=== PATIENT | female | born 1980 | race Caucasian/White ===

== ENCOUNTER 2017-01-30 05:40 | Day surgery (SDC) | payer OTHER ==
[~2017-01-30] VITALS: Ht 172.7 cm; Wt 155.5 kg
[~2017-01-30 05:40] MED LIST: ADDERALL30 MG PO; ALBUTEROL17 GM IH; AMBIEN10 MG PO; AMPHETAMINE SAL20 MG PO; CATAPRES0.1 MG PO; CELEXA10 MG PO; CELEXA20 MG PO; CLONIDINE HCL0.1 MG PO; ENDOCET 5-3251 EACH PO; EPIPEN ADU0.3 MG/0.3 IM; FLAGYL500 MG PO; FLEXERIL10 MG PO; FLONASE16 G1 BOTH NARES; INDOCIN50 MG PO; KLONOPIN0.5 M1 PO; MACROBID100 MG PO; NOHOMEMEDS; PERCOCET 5/31 TABLET PO; PROAIR HFA8.5 GM IH; PROMETHAZINE HC25 M1 PO; PROTONIX40 MG PO; RANITIDINE HCL150 MG PO; TOPAMAX50 MG PO; TRAMADOL HCL50 MG PO; TYLENOL REGULA325 MG PO; VENTOLIN HFA18 GM IH; VITAMIN D5000 UNI1 PO; WELLBUTRIN XL150 MG PO; WELLBUTRIN XL300 MG PO; XANAX1 MG PO; ZOFRAN ODT4 MG PO
[2017-01-30 06:18] VITALS: BP 128/77
[2017-01-30 12:35] VITALS: BP 132/97
[2017-01-30 16:24] VITALS: BP 114/59
[2017-01-30 19:14] VITALS: BP 126/80
[2017-01-30 23:19] VITALS: BP 104/65
[2017-01-31 03:36] VITALS: BP 135/71
[2017-01-31 06:39] LABS: EOSINOPHIL (%) 0.1 % (0-5); HEMATOCRIT 34.8 % (36.0-46.0); IMMATURE GRANULOCYTE (%) 0.4 % (0.0-0.7); INSTRUMENT ABS NEUTROPHIL CT 8.6 K/uL; LYMPHOCYTE COUNT 1.7 K/uL (1.0-2.8); MCH 30.9 PG (29.0-34.0); MCHC 33.3 G/DL (30.0-36.0); MCV 92.6 FL (83-99); MEAN PLAT.VOLUME 10.3 uM^3 (9.5-12.4); MONOCYTE (%) 6.2 % (3-12); MONOCYTE COUNT 0.7 K/uL (0-0.8); NEUTROPHIL (%) 77.6 % (45-76); NEUTROPHIL COUNT 8.6 K/uL (1.8-6.4); PLATELET COUNT 250 K/uL (156-360); RBC DIS.WIDTH-CV 11.7 % (11.8-14.6); RBC DIS.WIDTH-SD 39.8 % (39-53); RED BLOOD COUNT 3.76 M/uL (3.80-5.20)
[2017-01-31 07:05] LABS: ANION GAP 7 MEQ/L (2-14); CHLORIDE 104 MEQ/L (99-109); GFR ESTIMATE (CALCULATED) > 59 mL/min/; GLUCOSE 105 mg/dL (70-99); SAMPLE HEMOLYSIS CHECK 0; SAMPLE ICTERIC CHECK 0; SAMPLE LIPEMIA CHECK 0; SODIUM 139 MEQ/L (136-147); UREA NITROGEN (BUN) 9 mg/dL (9-23)
[2017-01-31 07:43] VITALS: BP 122/76
[2017-01-31 11:28] VITALS: BP 134/70
== END 2017-01-31 12:06 | disposition home or self-care (01) ==
LOC: SDC 05:40 → 2SOUTH 10:10 → 2EAST 10:10 → 2SOUTH 10:10 → ENRESERV 10:38 → 2EAST 12:11 → SDC 14:25 → 2EAST 01-31 12:06
PROVIDERS: Obstetrics & Gynecology Gynecology
DX: N92.1 Excessive and frequent menstruation with irregular cycle (principal); N94.6 Dysmenorrhea, unspecified; N80.0 Endometriosis of uterus; N72 Inflammatory disease of cervix uteri; N80.2 Endometriosis of fallopian tube; F17.210 Nicotine dependence, cigarettes, uncomplicated; E66.01 Morbid (severe) obesity due to excess calories; K21.9 Gastro-esophageal reflux disease without esophagitis; B19.10 Unspecified viral hepatitis B without hepatic coma; E03.9 Hypothyroidism, unspecified; Z79.891 Long term (current) use of opiate analgesic; M47.816 Spondylosis without myelopathy or radiculopathy, lumbar region; J45.30 Mild persistent asthma, uncomplicated; R73.09 Other abnormal glucose; Z88.2 Allergy status to sulfonamides
CPT/HCPCS: 80048; 85025; 87086; 88307; G0378; J0330; J0690; J1100; J1170; J1200; J1644; J1885; J2001; J2270; J2405; J2710; J2795; J3010; J3475; J7120